=== PATIENT | male | born 1985 | race Caucasian/White ===

== ENCOUNTER 2019-04-03 08:54 | Inpatient (IN) ==
[2019-04-03] MEDS ORDERED: ONDANSETRON 4 MG/2 ML VIAL IV PRN (09:20)
[2019-04-03] MEDS: SODIUM CHLORIDE 0.9% 1,000 ML IV SCH ×2 (11:17→17:55)
[2019-04-03 11:24] LABS: Basophils # 0.1 10*3/uL (0.0-0.2); Basophils % 0.5 % (0.0-0.8); Hematocrit 38.9 VOL% (42.0-52.0); Immature Granulocytes % 0.8 %; Lymphocytes # 0.4 10*3/uL (1.4-4.0); Lymphocytes % 2.7 % (21.2-54.2); Mean Corpuscular HGB Conc 33.4 GM/DL (32-36); Mean Corpuscular Volume 87.4 FL (87-102); Mean Platelet Volume 9.8 FL (9.6-12.0); Monocytes % 4.6 % (1.7-12.7); Neutrophils % 91.4 % (38.7-73.9); Platelet Count 229 T/CUMM (130-400); Red Blood Count 4.45 MC/CUMM (3.8-5.5); White Blood Count 12.9 T/CUMM (4-12)
[2019-04-03 11:39] LABS: PT Patient Result 10.6 SECS (9.6-12.2); Partial Thromboplastin Time 29.5 SECS (20.8-36.0)
[2019-04-03 11:43] LABS: Albumin 3.7 G/DL (3.4-5.0); Bilirubin,Total 0.4 MG/DL (0.2-1.0); Calcium 9.2 MG/DL (8.5-10.1); Osmolality,Calculated 274.1 MOS/KG (273-304); Total Protein 8.2 G/DL (6.4-8.3)
[2019-04-03 11:57] LABS: Band Neutrophils 7 % (0-10); Eosinophils 1 % (0-10); Hypochromasia 1+; Lymphocytes 2 % (20-55); Platelet Estimate Adequate; Segmented Neutrophils 84 % (50-85); Total Cells Counted 100
[2019-04-03 13:40] LABS: Glucose,CSF 75 MG/DL (40-70)
[2019-04-03] MEDS: cefTRIAXone 2,000 MG in SYRINGE 1 EACH IV SCH ×2 (13:45→23:52)
[2019-04-03 14:15] LABS: Lymphocytes,CSF 25 %; Monocytes,CSF 50 %; Neutrophils,CSF 25 %
[2019-04-03 14:19] LABS: Red Blood Cell,CSF < 1 C/CUMM; White Blood Cell,CSF 2 C/CUMM
[2019-04-03 14:35] LABS: Appearance,CSF Clear
[2019-04-03] MEDS: DOCUSATE SODIUM 100 MG CAPSULE PO SCH (22:14)
[2019-04-04] MEDS: SODIUM CHLORIDE 0.9% 1,000 ML IV SCH ×3 (05:43→21:29)
[2019-04-04] MEDS: DOCUSATE SODIUM 100 MG CAPSULE PO SCH ×3 (07:56→21:34)
[2019-04-04] MEDS: ACETAMINOPHEN 325 MG TABLET PO PRN (07:56)
[2019-04-04] MEDS: PANTOPRAZOLE 40 MG TABLET PO SCH (08:00)
[2019-04-04] MEDS ORDERED: methylPREDNISolone SOD SUC 125 MG/2 ML VIAL IV ONE (09:45)
[2019-04-04] MEDS: BUTALBITAL/ACETAMIN/CAFFEINE 50-325-40 MG TABLET PO PRN ×2 (10:32→18:22)
[2019-04-04] MEDS: cefTRIAXone 2,000 MG in SYRINGE 1 EACH IV SCH ×2 (11:25→23:38)
[2019-04-04] MEDS: TEMAZEPAM 15 MG CAPSULE PO SCH (21:34)
[2019-04-05] MEDS: BUTALBITAL/ACETAMIN/CAFFEINE 50-325-40 MG TABLET PO PRN (08:09)
[2019-04-05] MEDS: PANTOPRAZOLE 40 MG TABLET PO SCH (08:09)
[2019-04-05] MEDS: DOCUSATE SODIUM 100 MG CAPSULE PO SCH ×2 (08:09→21:54)
[2019-04-05] MEDS: cefTRIAXone 2,000 MG in SYRINGE 1 EACH IV SCH (10:41)
[2019-04-05] MEDS: SODIUM CHLORIDE 0.9% 1,000 ML IV SCH (11:21)
[2019-04-05] MEDS: ACETAMINOPHEN 325 MG TABLET PO PRN (11:38)
[2019-04-05] MEDS ORDERED: methylPREDNISolone SOD SUC 40 MG/1 ML VIAL IV ONE (13:00)
[2019-04-05] MEDS ORDERED: ZIPRASIDONE 20 MG/1 ML VIAL IM ONE (18:08)
[2019-04-05] MEDS: TEMAZEPAM 15 MG CAPSULE PO SCH (21:54)
[2019-04-06] MEDS: cefTRIAXone 2,000 MG in SYRINGE 1 EACH IV SCH (00:17)
[2019-04-06] MEDS: BUTALBITAL/ACETAMIN/CAFFEINE 50-325-40 MG TABLET PO PRN ×2 (07:03→10:04)
[2019-04-06 09:08] VITALS: BP 120/64
[2019-04-06] MEDS: DOCUSATE SODIUM 100 MG CAPSULE PO SCH (09:57)
[2019-04-06] MEDS: PANTOPRAZOLE 40 MG TABLET PO SCH (10:02)
[2019-04-08 13:16] LABS: West Nile Virus Ab, IgG, CSF Negative (Negative); West Nile Virus Ab, IgM, CSF Negative (Negative)
== END 2019-04-06 10:55 | disposition home or self-care (01) | DRG 153 ==
LOC: N.5E 10:22
PROVIDERS: ADMIT Internal Medicine; ATTEND Internal Medicine